=== PATIENT | female | born 1950 | race Caucasian/White ===

== ENCOUNTER → 2016-05-20 | Outpatient (CLI) | payer MEDICARE, BC ==
[~2016-05-20] MED LIST: ACET-915; DIPH25CA6; DOCU-144; ENOX40DI14; HYDR-1666; HYDR2AMP; MAGN400O4; METO10TA92; OMEP20CA9; ORAGEL; POTA-57; ZOLP10TA; [UNRECOGNIZED DRUG - CODE]; [UNRECOGNIZED DRUG - CODE]
--- NOTE | 2016-05-20 18:00 | RADRPT ---
PROCEDURE: Right knee radiographs. CLINICAL INDICATION: Right knee pain. TECHNIQUE: Four views. Weight bearing. Frontal, lateral, oblique, and patellar view. COMPARISON: No prior studies are available for comparison. FINDINGS: There is no fracture or dislocation. There is a 0.7 cm intra-articular loose body anteriorly in the intercondylar notch region. The soft tissues are normal. There are degenerative changes with osteophytes arising from all 3 joint compartment margins. There is medial joint compartment narrowing and mild deformity. There is no lytic or blastic lesion. There is no radiopaque foreign body. IMPRESSION: 1. Interarticular 0.7 cm loose body anteriorly in the intercondylar notch. 2. Degenerative changes. 3. No acute abnormality. RPTAT: QQ .Duran Mendoza MD, Date Time Electronically viewed and signed by .Duran Mendoza MD, on 05/20/2016 17:59 .R/
== END | disposition home or self-care (01) ==
LOC: HKI 15:02
PROVIDERS: ATTEND Orthopaedic Surgery
DX: M17.0 Bilateral primary osteoarthritis of knee (principal); M25.561 Pain in right knee
CPT/HCPCS: 73564; G0463